=== PATIENT | female | born 1950 | race Caucasian/White ===

== ENCOUNTER 2018-10-18 07:59 | Day surgery (SDC) | payer OTHER ==
[2018-10-13 13:02] VITALS: BMI 27.6
[2018-10-18] MEDS ORDERED: PHENYLEPHRINE 2.5% OPHTH SOLN 15 ML BOTTLE ONE (08:30)
[2018-10-18] MEDS ORDERED: OFLOXACIN 0.3% OPHTHALMIC SOLUTION 5 ML BOTTLE ONE (08:30)
[2018-10-18] MEDS ORDERED: KETOROLAC TROMETHAMINE 0.5% EYE DROP 1 DROP DROPS ONE (08:30)
[2018-10-18] MEDS ORDERED: TROPICAMIDE 1% OPHTH SOLN 15 ML BOTTLE ONE (08:30)
[2018-10-18] MEDS ORDERED: CYCLOPENTOLATE HCL 1% OPHTH SOLN 2 ML BOTTLE ONE (08:30)
[2018-10-18] MEDS: CYCLOPENTOLATE HCL 1% OPHTH SOLN 2 ML BOTTLE OD SCH ×5 (09:15→09:35)
[2018-10-18] MEDS: OFLOXACIN 0.3% OPHTHALMIC SOLUTION 5 ML BOTTLE OD SCH ×5 (09:15→09:35)
[2018-10-18] MEDS: KETOROLAC TROMETHAMINE 0.5% EYE DROP 1 DROP DROPS OD SCH ×5 (09:15→09:35)
[2018-10-18] MEDS: PHENYLEPHRINE 2.5% OPHTH SOLN 15 ML BOTTLE OD SCH ×5 (09:15→09:35)
[2018-10-18] MEDS: TROPICAMIDE 1% OPHTH SOLN 15 ML BOTTLE OD SCH ×5 (09:15→09:35)
[2018-10-18] MEDS ORDERED: ACETYLCHOLINE 1:100 INTRA-OCUL 20 MG/2 ML KIT ONE (10:05)
[2018-10-18] MEDS ORDERED: EPI-SHUGARCAINE (EPINEPHRINE 0.025% & LIDOCAINE-PF 0.75%) 4ML ONE (10:05)
[2018-10-18] MEDS ORDERED: POVIDONE-IODINE 5% OPHTHALMIC PREP 30 ML SOLUTION ONE (10:05)
[2018-10-18] MEDS ORDERED: MIDAZOLAM HCL 2 MG/2 ML SINGLE DOSE VIAL ONE (10:29)
[2018-10-18] MEDS ORDERED: ACETAMINOPHEN 325 MG TABLET (FP) PO PRN (11:08)
--- NOTE | 2018-10-18 12:28 | OP ---
DATE OF OPERATION: 10/18/2018 PREOPERATIVE DIAGNOSIS: Cataract, right eye. POSTOPERATIVE DIAGNOSIS: Cataract, right eye. PROCEDURE: Cataract extraction via phacoemulsification with insertion of posterior chamber lens implant, right eye. SURGEON: Darvin Laird MD HOSPITAL PHARMACY DIRECTOR: Joann Lou MD ANESTHESIA: Topical with sedation. ESTIMATED BLOOD LOSS: Less than 1 mL. SPECIMENS: None. COMPLICATIONS: None. DESCRIPTION OF PROCEDURE: The patient was identified in the holding area. After all risks, benefits, and alternatives were explained to the patient, informed consent was obtained. The right eye was marked with a marking pen. The patient then entered the operating room on an eye stretcher. After a formal time-out was performed, topical tetracaine eye drops were instilled onto the right eye. The right eye was then prepped and draped in the usual sterile fashion. An eyelid speculum was placed beneath the eyelid of the right eye. A superotemporal paracentesis incision was created using x88-luyklq blade. Topical preservative-free epinephrine and preservative-free lidocaine was then injected into the anterior chamber. A viscoelastic was then injected into the anterior chamber. A 2.4-mm keratome blade was then used to make an infratemporal incision. A 360-degree continuous curvilinear capsulorrhexis was then created using bent cystotome and Utrata forceps. Hydrodissection was performed using balanced saline solution on a cannula. Phacoemulsification was introduced to disassemble and remove the nucleus in its entirety. Irrigation/aspiration was then used to remove any remaining cortical material from the eye. The capsular bag was reformed using viscoelastic. An Bipin Model [id number] with a power of 27.5 diopter serial number [id number] was inspected and found to be defect free and injected into the capsular bag. Irrigation/aspiration was then used to remove any remaining viscoelastic from the eye. The anterior chamber was reformed using balanced saline solution. Intracameral injections of Miochol and Miostat were then administered, and the pupil came down and was round. All wounds were hydrated with balanced saline solution and noted to be watertight. There was a red reflex present. The anterior chamber was deep. The lens was perfectly centered in the capsular bag, and the eye had adequate pressure. Topical antibiotic eyedrops and ointment were then administered to the right eye. The eyelid speculum was removed from the right eye. The right eye was shielded. The patient tolerated the procedure well and left the operating room in stable condition to follow up in the eye clinic tomorrow morning at 10 o'clock. DARVIN LAIRD M.D. [id number]
[2018-10-18 13:32] VITALS: TEMP 98.2
[2018-10-18 13:39] VITALS: BP 124/73; PULSE 83
== END 2018-10-18 12:00 | disposition home or self-care (01) ==
LOC: FASU 07:59 → EDSEX 09:00 → FASU 12:00
PROVIDERS: ATTEND Ophthalmology
PROC: 08RJ3JZ Replacement of Right Lens with Synthetic Substitute, Percutaneous Approach (ICD-10-PCS; principal; 2018-10-18 10:41)
DX: H26.9 Unspecified cataract (principal)

== ENCOUNTER 2018-11-08 09:16 | Day surgery (SDC) | payer OTHER ==
[2018-11-01 09:18] VITALS: BMI 27.6
[2018-11-08] MEDS ORDERED: TROPICAMIDE 1% OPHTH SOLN 15 ML BOTTLE ONE (09:30)
[2018-11-08] MEDS ORDERED: CYCLOPENTOLATE HCL 1% OPHTH SOLN 2 ML BOTTLE ONE (09:30)
[2018-11-08] MEDS ORDERED: OFLOXACIN 0.3% OPHTHALMIC SOLUTION 5 ML BOTTLE ONE (09:30)
[2018-11-08] MEDS ORDERED: KETOROLAC TROMETHAMINE 0.5% EYE DROP 1 DROP DROPS ONE (09:30)
[2018-11-08] MEDS ORDERED: PHENYLEPHRINE 2.5% OPHTH SOLN 15 ML BOTTLE ONE (09:30)
[2018-11-08] MEDS: KETOROLAC TROMETHAMINE 0.5% EYE DROP 1 DROP DROPS OS SCH ×5 (09:50→10:10)
[2018-11-08] MEDS: CYCLOPENTOLATE HCL 1% OPHTH SOLN 2 ML BOTTLE OS SCH ×5 (09:50→10:10)
[2018-11-08] MEDS: OFLOXACIN 0.3% OPHTHALMIC SOLUTION 5 ML BOTTLE OS SCH ×5 (09:50→10:10)
[2018-11-08] MEDS: PHENYLEPHRINE 2.5% OPHTH SOLN 15 ML BOTTLE OS SCH ×5 (09:50→10:10)
[2018-11-08] MEDS: TROPICAMIDE 1% OPHTH SOLN 15 ML BOTTLE OS SCH ×4 (09:50→10:05)
[2018-11-08] MEDS ORDERED: EPI-SHUGARCAINE (EPINEPHRINE 0.025% & LIDOCAINE-PF 0.75%) 4ML ONE (12:03)
[2018-11-08] MEDS ORDERED: ACETYLCHOLINE 1:100 INTRA-OCUL 20 MG/2 ML KIT ONE (12:03)
[2018-11-08] MEDS ORDERED: POVIDONE-IODINE 5% OPHTHALMIC PREP 30 ML SOLUTION ONE (12:03)
[2018-11-08] MEDS ORDERED: MIDAZOLAM HCL 2 MG/2 ML SINGLE DOSE VIAL ONE (12:26)
[2018-11-08] MEDS ORDERED: ACETAMINOPHEN 325 MG TABLET (FP) PO PRN ×2 (12:59→13:15)
[2018-11-08] MEDS ORDERED: ONDANSETRON 4 MG/2 ML VIAL IVPUSH PRN (12:59)
[2018-11-08] MEDS ORDERED: LACTATED RINGERS SOLUTION 1,000 ML IV SCH (13:00)
[2018-11-08] MEDS ORDERED: ACETAMINOPHEN 325 MG TABLET (FP) ONE (13:26)
[2018-11-08 13:34] VITALS: TEMP 98.7
[2018-11-08 13:49] VITALS: BP 142/89; PULSE 89
--- NOTE | 2018-11-08 13:49 | OP ---
DATE OF OPERATION: 11/08/2018 AGE: [age] years old. SEX: Female. PREOPERATIVE DIAGNOSIS: Cataract, left eye. POSTOPERATIVE DIAGNOSIS: Cataract, left eye. PROCEDURE: Cataract extraction via phacoemulsification with insertion of posterior chamber lens implant, left eye, toric lens. SURGEON: Darvin Laird MD SUPERVISOR AGENCY APPOINTMENTS: Joann Lou MD ANESTHESIA: Topical with sedation. ESTIMATED BLOOD LOSS: Less than 1 mL. COMPLICATIONS: None. SPECIMENS: None. DESCRIPTION OF PROCEDURE: The patient was identified in the holding area. After all risks, benefits, and alternatives were explained to the patient, informed consent was obtained. The left eye was marked with a marking pen. The patient then entered the operating room on an eye stretcher. The patient was asked to sit up and look straight ahead, and the left eye was marked properly for the cardinal axes of the astigmatism on the cornea using a toric bubble marker and a toric marking pen. After a formal timeout was performed, topical tetracaine eye drops were instilled onto the left eye. Left eye was then prepped and draped in the usual sterile fashion. An eyelid speculum was placed beneath the eyelids of the left eye. An inferotemporal paracentesis incision was created using a 15-degree blade, the axis of the astigmatism was then marked onto the eye using a toric and a toric marking pen, and the axis was noted to be 175 degrees. Then, topical preservative-free epinephrine and preservative-free lidocaine were then injected into the anterior chamber. Viscoelastic was then injected into the anterior chamber. A 2.4-mm keratome blade was then used to make a superotemporal incision. A 360-degree, continuous curvilinear capsulorrhexis was then created using bent cystotome and Utrata forceps. Hydrodissection was performed using balanced saline solution on a cannula. Phacoemulsification was introduced to disassemble and remove the nucleus in its entirety. Irrigation/aspiration was then used to remove any remaining cortical material from the eye. The capsular bag was reformed using viscoelastic. An Bipni model [id number] with a power of 27.5 diopters, serial number [id number] was inspected and found to be defect free and injected into the capsular bag. Irrigation/aspiration was then used to remove any remaining viscoelastic from the eye. Then, the intraocular lens was rotated so that the axis of the astigmatism matched the axis of the astigmatism on the cornea, which was noted to be 175 degrees. Once the axis of the astigmatism on the optic matched that 175 degrees on the cornea, then intracameral injection of Miochol was then given, and the pupil came down and was round. All wounds were noted to be open. Then, intracameral injection of BSS was then used, and then, all wound were hydrated with balanced saline solution, noted to be watertight. Upon inspection, the lens was perfectly centered in the capsular bag. The anterior chamber was deep. There was a red reflex, and the eye had adequate pressure. The lens was perfectly centered with the axis of the astigmatism at 175 degrees, matching the cornea. Topical antibiotic eye drops and ointment were then administered to the left eye. The eyelid speculum was removed from the left eye. The left eye was shielded. The patient tolerated the procedure well, left the operating room in stable condition to follow up in the eye clinic tomorrow morning at 10:00. DARVIN LAIRD M.D. [id number]
== END 2018-11-08 13:55 | disposition home or self-care (01) ==
LOC: FASU 09:16
PROVIDERS: ATTEND Ophthalmology
PROC: 08RK3JZ Replacement of Left Lens with Synthetic Substitute, Percutaneous Approach (ICD-10-PCS; principal; 2018-11-08 12:43)
DX: H26.9 Unspecified cataract (principal)